=== PATIENT | female | born 1975 | race American Indian/Alaskan Native ===

== ENCOUNTER 2021-05-21 10:39 | Emergency (ER) | payer MEDICAID ==
[2021-05-21] MEDS ORDERED: Ondansetron 4 MG Tab.DIS PO ONE (11:15)
[2021-05-21] MEDS ORDERED: Venlafaxine 37.5 MG Cap.ER PO ONE (11:16)
[2021-05-21] MEDS ORDERED: Venlafaxine 150 MG CAP.ER PO ONE (11:30)
--- NOTE | 2021-05-21 11:31 | EDM.PDOCBH ---
Scribed by Little Tolbert 05/21/21 1131 for Sacha Sterling MD ED HPI GENERAL MEDICAL PROBLEM - General Chief Complaint: Behavioral/Psych Stated Complaint: WITHDRAWALS MEDICATION Time Seen by Provider: 05/21/21 11:15 Source of Information: Reports: Patient History Limitations: Reports: No Limitations - History of Present Illness INITIAL COMMENTS - FREE TEXT/NARRATIVE: 46 y/o F c/o anxiety and withdrawal from her Venlafaxine since this morning. Pt came up from [place] a couple days ago for a and forgot her medications. Pt reports feeling anxious, nauseated and vomiting. She requests to have one 150mg Venlafaxine and something for nausea. Denies fever, cough, chills, suicidal ideations, cp, db, abd pn. Onset: Today Duration: Hour(s): Location: Reports: Generalized Severity: Moderate Improves with: Reports: None Worsens with: Reports: None - Related Data Allergies Allergy/AdvReac Type Severity Reaction Status Date / Time Penicillins Allergy Rash Verified 08/25/14 11:55 Home Meds: Home Meds Albuterol [Proventil Neb Soln] 2 inhalation INH Q6HR PRN 07/15/14 [History] Ibuprofen [Advil] 800 mg PO TID PRN 07/15/14 [History] Gabapentin [Neurontin] 100 mg PO TID 08/25/14 [History] traMADol [Ultram] 50 mg PO BID PRN 08/25/14 [History] ED ROS GENERAL - Review of Systems Review Of Systems: Comprehensive ROS is negative, except as noted in HPI. ED EXAM, BEHAVIORAL HEALTH - Physical Exam Exam: See Below Exam Limited By: No Limitations General Appearance: Alert, Anxious Eye Exam: Bilateral Eye: PERRL Nose: Normal Inspection, Normal Mucosa, No Blood Throat/Mouth: Normal Inspection, Normal Lips, Normal Teeth, Normal Gums, Normal Oropharynx, Normal Voice, No Airway Compromise Head: Atraumatic, Normocephalic Respiratory/Chest: No Respiratory Distress, Lungs Clear Cardiovascular: Normal Peripheral Pulses, Regular Rate, Rhythm Psychiatric: Depressed Mood Skin Exam: Warm, Dry, Intact COURSE, BEHAVIORAL HEALTH COMP - Course Vital Signs: Last Vital Signs Temp 95.2 F L 05/21/21 11:06 Pulse 65 05/21/21 11:06 Resp 16 05/21/21 11:06 BP 174/85 H 05/21/21 11:06 Pulse Ox 99 05/21/21 11:06 Orders, Labs, Meds: Medications Discontinued Medications Generic Name Dose Route Start Last Admin Trade Name Yary PRN Reason Stop Dose Admin Ondansetron HCl 4 mg 05/21/21 11:15 Ondansetron 4 Mg Tab.Dis PO 05/21/21 11:16 ONETIME ONE Venlafaxine HCl 150 mg 05/21/21 11:16 Venlafaxine 37.5 Mg Cap.Er PO 05/21/21 11:17 ONETIME ONE Departure - Departure Time of Disposition: 11:29 Disposition: Home, Self-Care 01 Condition: Good Clinical Impression: Has run out of medications Medication withdrawal Qualifiers: Substance type: other psychoactive substance Qualified Code(s): F19.939 - Other psychoactive substance use, unspecified with withdrawal, unspecified - Discharge Information *PRESCRIPTION DRUG MONITORING PROGRAM REVIEWED*: Not Applicable *COPY OF PRESCRIPTION DRUG MONITORING REPORT IN PATIENT TOMI: Not Applicable Forms: ED Department Discharge Additional Instructions: Take your medication as prescribed. Follow up in clinic if needed. Sepsis Event Note (ED) - Focused Exam Vital Signs: Vital Signs Temp Pulse Resp BP Pulse Ox 05/21/21 11:06 95.2 F L 65 16 174/85 H 99 I have read and agree with the documentation that has been completed regarding this visit. By signing this record, I attest that the documentation was completed in my physical presence and is an accurate record of the encounter.
== END 2021-05-21 11:45 | disposition home or self-care (01) ==
LOC: DL.ED 10:39
DX: F19.239 Other psychoactive substance dependence with withdrawal, unspecified (principal); F41.9 Anxiety disorder, unspecified; R11.0 Nausea; Z76.0 Encounter for issue of repeat prescription; Z88.0 Allergy status to penicillin
CPT/HCPCS: 99283; A9270-GY